=== PATIENT | female | born 1985 ===

== ENCOUNTER 2018-12-30 11:45 | Emergency (ER) | payer OTHER ==
[~2018-12-30] VITALS: Ht 167.6 cm; Wt 56.7 kg
[~2018-12-30 11:45] MED LIST: ATIVAN1 M1 PO; CEFTIN250 MG PO; FOLIC ACID0.4 MG; PERCOCET 5/3251 TAB PO; PRENATAL + DHA1 EAC1; SURFAK240 M1 PO; URIN D.S. TABLE1 TAB PO; ZITHROMAX TRI-500 MG PO
== END 2018-12-30 17:42 | disposition home or self-care (01) ==
LOC: ER 11:45
DX: N39.0 Urinary tract infection, site not specified (principal); N20.0 Calculus of kidney